=== PATIENT | female | born 1935 | race Caucasian/White ===

== ENCOUNTER 2019-03-02 11:49 | Observation (INO) | payer MEDICARE, OTHER ==
[2019-03-02] MEDS ORDERED: NORMAL SALINE 1000 ML 1,000 ML IV PRN (12:28)
--- NOTE | 2019-03-02 12:30 | ER Document Report ---
ED Medical Screen (RME) - General Chief Complaint: Low Blood Pressure Stated Complaint: DIZZINESS Time Seen by Provider: 03/02/19 12:20 TRAVEL OUTSIDE OF THE [place] IN LAST 30 DAYS: No - HPI Notes: 03/02/19 12:28 Patient is an 83-year-old female with a history of coronary artery disease with stent placement in December for [place] (on Brilinta), COPD, CHF, GERD who presents from cardiac rehab with complaint of dizziness and hypotension. Patient states that she is otherwise feeling well and is eating and drinking without difficulty. She is urinating normally and having normal bowel movements. She has not n oticed any melena or hematochezia. Denies drug allergies. She does not take any blood pressure medicines. Denies GEORGES, fever, neck pain, URI, CP, SOB, Abd pain, n/v/d, dysuria, back pain, or rash. I have treated and performed a rapid initial assessment of this patient. A comprehensive ED assessment and evaluation of the patient, analysis of test results and completion of medical decision making process will be conducted by additional ED providers. PHYSICAL EXAMINATION: GENERAL: Well-appearing, well-nourished and in no acute distress. A&Ox4. Answers questions appropriately. LUNGS: Breath sounds clear to auscultation bilaterally and equal. No wheezes rales or rhonchi. HEART: Regular rate and rhythm Extremities: No cyanosis, clubbing, or edema b/l. NEUROLOGICAL: Normal speech, normal gait. Cranial nerves grossly intact. PSYCH: Normal mood, normal affect. - Related Data Allergies/Adverse Reactions: No Known Allergies Allergy (Unverified 03/02/19 12:23) Physical Exam - Vital signs Vitals: Temp Pulse Resp BP Pulse Ox 97.7 F 67 24 H 75/52 L 95 03/02/19 12:06 03/02/19 12:06 03/02/19 12:06 03/02/19 12:06 03/02/19 12:06 Course - Vital Signs Vital signs: Temp Pulse Resp BP Pulse Ox 97.7 F 67 24 H 75/52 L 95 03/02/19 12:06 03/02/19 12:06 03/02/19 12:06 03/02/19 12:06 03/02/19 12:06
--- NOTE | 2019-03-02 13:20 | RADIOLOGY REPORT (SQ) ---
EXAM DESCRIPTION: CHEST SINGLE VIEW COMPLETED DATE/TIME: 03/02/2019 1:05 pm REASON FOR STUDY: Hypotension, wheeze COMPARISON: None. EXAM PARAMETERS: NUMBER OF VIEWS: One view. TECHNIQUE: Single frontal radiographic view of the chest acquired. RADIATION DOSE: NA LIMITATIONS: None. FINDINGS: LUNGS AND PLEURA: No consolidation, masses or pneumothorax. No pleural effusion. MEDIASTINUM AND HILAR STRUCTURES: No masses. Contour normal. HEART AND VASCULAR STRUCTURES: Heart normal in size. Normal vasculature. BONES: No acute findings. HARDWARE: Right hilar suture material. OTHER: No other significant finding. IMPRESSION: NO ACUTE RADIOGRAPHIC FINDING IN THE CHEST. TECHNICAL DOCUMENTATION: JOB ID: [id number] [id number] [email or web address]- All Rights Reserved Reading location - IP/workstation name: [email or web address]
[2019-03-02 13:25] LABS: ABSOLUTE BASOPHILS # (AUTO) 0.1 10^3/uL (0.0-0.2); ABSOLUTE EOSINOPHILS # (AUTO) 0.2 10^3/uL (0.0-0.6); ABSOLUTE LYMPHOCYTES (AUTO) 1.6 10^3/uL (0.5-4.7); ABSOLUTE MONOCYTES (AUTO) 0.7 10^3/uL (0.1-1.4); ABSOLUTE NEUT (AUTO) 6.6 10^3/uL (1.7-8.2); APPEARANCE,URINE CLEAR; BASOPHILS % (AUTO) 0.7 % (0-2); BILIRUBIN,URINE NEGATIVE (NEGATIVE); COLOR,URINE STRAW; EOSINOPHILS % (AUTO) 1.8 % (0-6); GLUCOSE, URINE NEGATIVE (NEGATIVE); HEMATOCRIT 33.7 % (36.0-47.0); HEMOGLOBIN 11.2 g/dL (12.0-15.5); INTERNATIONAL RATION (INR) 0.93; KETONES,URINE NEGATIVE (NEGATIVE); LEUKOCYTE ESTERASE,URINE NEGATIVE (NEGATIVE); LYMPHOCYTES % (AUTO) 17.5 % (13-45); MEAN CORPUSCULAR HEMOGLOBIN 31.6 pg (27.0-33.4); MEAN CORPUSCULAR HGB CONC 33.2 g/dL (32.0-36.0); MEAN CORPUSCULAR VOLUME 95 fl (80-97); NITRITE,URINE NEGATIVE (NEGATIVE); PLATELET COUNT 404 10^3/uL (150-450); PROTEIN,URINE NEGATIVE (NEGATIVE); RED BLOOD COUNT 3.54 10^6/uL (3.72-5.28); RED CELL DISTRIBUTION WIDTH 13.9 % (11.5-14.0); TOTAL CELLS COUNTED % (AUTO) 100 %; URINE SPECIFIC GRAVITY 1.004; UROBILINOGEN,URINE NEGATIVE mg/dL (<2.0); WHITE BLOOD COUNT 9.1 10^3/uL (4.0-10.5)
[2019-03-02 13:47] LABS: ALANINE AMINOTRANSFERASE 34 U/L (9-52); ALKALINE PHOSPHATASE 98 U/L (38-126); ANION GAP 8 (5-19); ASPARTATE AMINO TRANSFERASE 34 U/L (14-36); BILIRUBIN,DIRECT 0.2 mg/dL (0.0-0.4); BILIRUBIN,TOTAL 0.5 mg/dL (0.2-1.3); BLOOD UREA NITROGEN 14 mg/dL (7-20); CALCIUM 9.7 mg/dL (8.4-10.2); CARBON DIOXIDE 29 mmol/L (22-30); CHLORIDE 101 mmol/L (98-107); GLUCOSE 87 mg/dL (75-110); POTASSIUM 4.3 mmol/L (3.6-5.0); SODIUM 138.1 mmol/L (137-145); TOTAL PROTEIN 6.8 g/dL (6.3-8.2)
[2019-03-02] MEDS ORDERED: ACETAMINOPHEN 325 MG TABLET PO ONE (13:49)
--- NOTE | 2019-03-02 13:58 | RADIOLOGY REPORT (SQ) ---
EXAM DESCRIPTION: CT HEAD WITHOUT COMPLETED DATE/TIME: 03/02/2019 1:46 pm REASON FOR STUDY: new onset facial numbness COMPARISON: None. TECHNIQUE: Axial images acquired through the brain without intravenous contrast. Images reviewed wi th bone, brain and subdural windows. Additional sagittal and coronal reconstructions were generated. Images stored on PACS. All CT scanners at this facility use dose modulation, iterative reconstruction, and/or weight based d osing when appropriate to reduce radiation dose to as low as reasonably achievable (ALARA). [facility]: Dose Right [facility]: CareDose [facility]: Dose Right [facility]: Teradose 4D [facility]: Digital Loyalty System RADIATION DOSE: CT Rad equipment meets quality standard of care and radiation dose reduction techniq ues were employed. CTDIvol: 53.2 mGy. DLP: 1017 mGy-cm. mGy. LIMITATIONS: None. FINDINGS: VENTRICLES: Normal size and contour. CEREBRUM: No masses. No hemorrhage. No midline shift. No evidence for acute infarction. Spotty bif rontal and biparietal low attenuation from chronic small vessel ischemic change in the deep hemispher ic white matter. CEREBELLUM: No masses. No hemorrhage. No alteration of density. No evidence for acute infarction. EXTRAAXIAL SPACES: No fluid collections. No masses. ORBITS AND GLOBE: No intra- or extraconal masses. Normal contour of globe without masses. Post bila teral cataract surgery CALVARIUM: No fracture. PARANASAL SINUSES: No fluid or mucosal thickening. SOFT TISSUES: No mass or hematoma. OTHER: No other significant finding. IMPRESSION: Age-appropriate deep periventricular white matter small vessel disease. No CT evidence of acute large territory ischemic change, acute intracranial hemorrhage, mass effect, or midline shift. EVIDENCE OF ACUTE STROKE: NO. COMMENT: Quality ID # [id number]: Final reports with documentation of one or more dose reduction techniques (e.g., Automated exposure control, adjustment of the mA and/or kV according to patient size, use of iterative reconstruction technique) TECHNICAL DOCUMENTATION: JOB ID: [id number] [employer]- All Rights Reserved Reading location - IP/workstation name: [email or web address]-
--- NOTE | 2019-03-02 13:59 | ER Document Report ---
ED Blood Pressure Problem - General Chief Complaint: Low Blood Pressure Stated Complaint: DIZZINESS Time Seen by Provider: 03/02/19 12:20 TRAVEL OUTSIDE OF THE U.S. IN LAST 30 DAYS: No - HPI Notes: Patient is a 83-year-old female with recent MO and coronary stenting done on 12/16/2018 that presents to the emergency department for chief complaint of lightheadedness and hypotension. Patient was in cardiac rehab today on an exercise bike. She states she had been doing weight lifting and walking prior to getting on the bike. While going she felt that she had reached her limit. Patient tried to stand up off the bike and felt very lightheaded and dizzy. She states she then collapsed down to the ground. She denied any head injury or loss of consciousness. She states that she had some improvement after lying down on the ground. Patient was noted to be hypotensive at that time. She is currently on Brilinta and aspirin for her coronary stent. She denied any associated shortness of breath, palpitations, or chest pain. Currently patient states that she is feeling much better. She states that about 30 minutes ago she started to have a headache which she describes as a squeezing sensation behind her left eye and some paresthesias to the left side of her face. She denied any other focal numbness or weakness. She denies vision changes. She denies history of headaches in the past. Past Medical History: Hyperlipidemia, hypertension, CAD, COPD Past Surgical History: Coronary stenting Social History: Denies tobacco and alcohol Family History: Reviewed and noncontributory for presenting illness Allergies: Reviewed, see documented allergy list. REVIEW OF SYSTEMS: CONSTITUTIONAL : No fever No chills No diaphoresis No recent illness EENT: No vision changes No congestion No sore throat CARDIOVASCULAR: No chest pain No palpitations RESPIRATORY: No shortness of breath No cough No difficulty breathing GASTROINTESTINAL: No abdominal pain No nausea No vomiting No diarrhea GENITOURINARY: No dysuria No hematuria No difficulty urinating MUSCULOSKELETAL: No back pain No leg pain No arm pain SKIN: No rashes No lesions LYMPHATIC: No swollen, enlarged glands. NEUROLOGICAL: lightheadedness No headache No weakness paresthesias PSYCHIATRIC: No anxiety No depression PHYSICAL EXAMINATION: Vital signs reviewed, nursing noted reviewed. GENERAL: Well-appearing, well-nourished and in no acute distress. HEAD: Atraumatic, normocephalic. EYES: Eyes appear normal, extraocular movements intact, sclera anicteric, conjunctiva are normal. ENT: nares patent, oropharynx clear without exudates. Moist mucous membranes. NECK: Normal range of motion, supple without lymphadenopathy LUNGS: Breath sounds clear to auscultation bilaterally and equal. No wheezes rales or rhonchi. HEART: Regular rate and rhythm without murmurs, +2/4 bilateral radial and DP pulse ABDOMEN: Soft, nontender, normoactive bowel sounds. No rebound, guarding, or rigidity. No masses appreciated. EXTREMITIES: Nontender, good range of motion, no pitting or edema. NEUROLOGICAL: No focal neurological deficits. Moves all extremities spontaneously Motor grossly intact on exam. subjective paresthesia to left cheek and jaw distribution. Normal sensation to the upper part of patient's forehead. No facial droop or weakness. Normal speech. PSYCH: Normal mood, normal affect. SKIN: Warm, Dry, normal turgor, no rashes or lesions noted on exposed skin - Related Data Allergies/Adverse Reactions: ciprofloxacin [From Cipro] Allergy (Verified 03/02/19 12:30) clindamycin Allergy (Verified 03/02/19 12:30) meperidine [From Demerol] Allergy (Verified 03/02/19 12:30) Confusion oxycodone [From OxyContin] Allergy (Verified 03/02/19 12:30) Penicillins Allergy (Verified 03/02/19 12:30) paralysis propoxyphene [From Darvon] Allergy (Verified 03/02/19 12:30) simvastatin [From Zocor] Allergy (Verified 03/02/19 12:30) Sulfa (Sulfonamide Antibiotics) Allergy (Verified 03/02/19 12:30) rash trovafloxacin [From Trovan] Allergy (Verified 03/02/19 12:30) codeine Adverse Reaction (Verified 03/02/19 12:30) Nausea Past Medical History - Social History Smoking Status: Former Smoker Family History: Reviewed & Not Pertinent Patient has suicidal ideation: No Patient has homicidal ideation: No - Past Medical History Cardiac Medical History: Reports: Hx Congestive Heart Failure, Hx Heart Attack - 12/16/18 Pulmonary Medical History: Reports: Hx COPD Renal/ Medical History: Denies: Hx Peritoneal Dialysis GI Medical History: Reports: Hx Gastroesophageal Reflux Disease Past Surgical History: Reports: Hx Appendectomy, Hx Cardiac Surgery - stent, Hx Cholecystectomy, Hx Orthopedic Surgery - neck, L knee arthoscopy, Hx Tubal L igation Physical Exam - Vital signs Vitals: Temp Pulse Resp BP Pulse Ox 97.7 F 67 24 H 75/52 L 95 03/02/19 12:06 03/02/19 12:06 03/02/19 12:06 03/02/19 12:06 03/02/19 12:06 Course - Re-evaluation Re-evalutation: 03/02/19 13:53 Vitals reviewed. Nursing notes reviewed. Patient presented hypotensive. She has been ordered IV fluids and blood pressure has now increased to 108/80. Patient states that that is a very high blood pressure for her. She is no longer lightheaded or dizzy. She is complaining of a headache with left-sided facial paresthesias which just began while in the emergency room. CT brain has been ordered. Patient has no other focal neurologic deficits. Her NIH is 1 for her paresthesias and she is not a TPA candidate for low NIH. My suspicion for ischemic stroke as a cause of her facial numbness is very low. 03/02/19 15:[address] brain shows no intracranial pathology. Her headache has improved with Tylenol and as the pain has subsided so has the facial paresthesias. She states it is feeling better but not completely resolved. The remainder of her work-up is unremarkable. Her troponin is negative. She has no electrolyte derangements. She has not had any dysrhythmia on telemetry monitoring. I have attempted to contact cardiac rehab to see if patient was on telemetry during her episode today. They did not convey any dysrhythmia on report when they sent her to the emergency room. I did discuss her care with Dr. Rhodes at [facility] who is partners with her collar folder operator. He does not feel she is requiring transfer or heart catheterization at this time. He does recommend tel emetry obs for dysrhythmia and trending of her troponins. Patient will be admitted to this facility for further monitoring. Her care was discussed with Dr. Troncoso who accepted admission. Patient in agreement with plan of care and stable at time of admission. Laboratory 03/02/19 03/02/19 03/02/19 12:49 12:49 12:49 WBC 9.1 RBC 3.54 L Hgb 11.2 L Hct 33.7 L MCV 95 MCH 31.6 MCHC 33.2 RDW 13.9 Plt Count 404 Seg Neutrophils % 72.0 Lymphocytes % 17.5 Monocytes % 8.0 Eosinophils % 1.8 Basophils % 0.7 Absolute Neutrophils 6.6 Absolute Lymphocytes 1.6 Absolute Monocytes 0.7 Absolute Eosinophils 0.2 Absolute Basophils 0.1 PT 13.0 INR 0.93 Sodium 138.1 Potassium 4.3 Chloride 101 Carbon Dioxide 29 Anion Gap 8 BUN 14 Creatinine 0.89 Est GFR ( Amer) > 60 Est GFR (Non-Af Amer) > 60 Glucose 87 Calcium 9.7 Total Bilirubin 0.5 Direct Bilirubin 0.2 Neonat Total Bilirubin Not Reportable Neonat Direct Bilirubin Not Reportable Neonat Indirect Bili Not Reportable AST 34 ALT 34 Alkaline Phosphatase 98 Troponin I NT-Pro-B Natriuret Pep Total Protein 6.8 Albumin 4.0 Urine Color Urine Appearance Urine pH Ur Specific [place] Urine Protein Urine Glucose (UA) Urine Ketones Urine Blood Urine Nitrite Urine Bilirubin Urine Urobilinogen Ur Leukocyte Esterase Urine WBC (Auto) Urine RBC (Auto) Squamous Epi Cells Auto Urine Mucus (Auto) Urine Ascorbic Acid 03/02/19 03/02/19 12:49 12:49 WBC RBC Hgb Hct MCV MCH MCHC RDW Plt Count Seg Neutrophils % Lymphocytes % Monocytes % Eosinophils % Basophils % Absolute Neutrophils Absolute Lymphocytes Absolute Monocytes Absolute Eosinophils Absolute Basophils PT INR Sodium Potassium Chloride Carbon Dioxide Anion Gap BUN Creatinine Est GFR ( Amer) Est GFR (Non-Af Amer) Glucose Calcium Total Bilirubin Direct Bilirubin Neonat Total Bilirubin Neonat Direct Bilirubin Neonat Indirect Bili AST ALT Alkaline Phosphatase Troponin I < 0.012 NT-Pro-B Natriuret Pep 383 Total Protein Albumin Urine Color STRAW Urine Appearance CLEAR Urine pH 7.0 Ur Specific [place] 1.004 Urine Protein NEGATIVE Urine Glucose (UA) NEGATIVE Urine Ketones NEGATIVE Urine Blood NEGATIVE Urine Nitrite NEGATIVE Urine Bilirubin NEGATIVE Urine Urobilinogen NEGATIVE Ur Leukocyte Esterase NEGATIVE Urine WBC (Auto) 0 Urine RBC (Auto) 0 Squamous Epi Cells Auto <1 Urine Mucus (Auto) RARE Urine Ascorbic Acid NEGATIVE Head CT 03/02/19 00:00 IMPRESSION: Age-appropriate deep periventricular white matter small vessel disease. No CT evidence of acute large territory ischemic change, acute intracranial hemorrhage, mass effect, or midline shift. EVIDENCE OF ACUTE STROKE: NO. Chest X-Ray 03/02/19 12:27 IMPRESSION: NO ACUTE RADIOGRAPHIC FINDING IN THE CHEST. - Vital Signs Vital signs: Temp Pulse Resp BP Pulse Ox 97.7 F 67 13 122/65 95 03/02/19 12:06 03/02/19 12:06 03/02/19 14:56 03/02/19 14:56 03/02/19 14:56 - Laboratory Result Diagrams: 03/02/19 12:49 03/02/19 12:49 Laboratory results interpreted by me: 03/02/19 12:49 RBC 3.54 L Hgb 11.2 L Hct 33.7 L - EKG Interpretation by Me Additional EKG results interpreted by me: 03/02/19 15:55 Interpreted by myself [id number]: Normal sinus rhythm, rate 65, normal axis, no STEMI, no ectopy Discharge - Discharge Clinical Impression: Transient hypotension, Near syncope Condition: Stable Disposition: ADMITTED OBSERVATION Admitting Provider: Aba (Hospitalist) Unit Admitted: Telemetry
[2019-03-02 14:12] LABS: NT PRO BNP 383 pg/mL (<450)
[2019-03-02 14:13] LABS: TROPONIN I < 0.012 ng/mL
[2019-03-02] MEDS ORDERED: (PENDING PHARMACY ID) (Ranitidine Hcl [Zantac 150 Mg Tablet] 150 MG) PO PRN (16:41)
[2019-03-02] MEDS ORDERED: FAMOTIDINE 20 MG TABLET PO PRN (16:48)
--- NOTE | 2019-03-02 16:53 | PDOC H&P ---
History of Present Illness History of Present Illness: JOHNNA MCLAIN is a 83 year old female with a history of well-controlled COPD and coronary artery disease status post 1 stent and the right circumflex artery approximately 1-1/2 months ago who just started cardiac rehab today. She said she had a bowl of cereal this morning and a couple coffee but she has not had any water all day. She said her blood pressure tends to run low and had been on blood pressure medicine after her heart cath but was taken off of it because her pressures were running too low. She did cardiovascular exercise today for about an hour and when she got off of the machine at the end of it she did not do a cooldown session and when she got off the machine instead up she began to feel dizzy. She says she sat down and rested for a minute and started to feel better but when she stood up she got dizzy again. She is not sure if she was on a monitoring specialist while in the and this was going on. They did check her blood pressure while she was seated and her systolic was in the upper 90s. When she stood up it was in the low to mid 80s. It was again low in the emergency department and they gave her a bag of IV fluid her systolic came up into the 120s. She denies any chest pain. She denies passing out. She says she does not think anything like this happen her before. Past Medical History Cardiac Medical History: Reports: Congestive Heart Failure, Myocardial Infarction - 12/16/18 Pulmonary Medical History: Reports: Chronic Obstructive Pulmonary Disease (COPD) GI Medical History: Reports: Gastroesophageal Reflux Disease Past Surgical History Past Surgical History: Reports: Appendectomy, Cholecystectomy, Orthopedic Surg henrique - neck, L knee arthoscopy, Tubal Ligation Social History Smoking Status: Former Smoker Family History Family History: Reviewed & Not Pertinent Parental Family History Reviewed: Yes - Coronary artery disease Children Family History Reviewed: Yes - Nothing known Sibling(s) Family History Reviewed.: Yes - Hypertension Medication/Allergy Home Medications: Albuterol Sulfate [Ventolin 0.083% Neb 2.5 mg/3 ml Ampul] 1 vial NEB TIDP PRN 03/02/19 Atorvastatin Calcium [Lipitor 80 mg Tablet] 80 mg PO QHS 03/02/19 Fluticasone/Salmeterol [Advair 250-50 Diskus 14 Dose/Diskus] 1 inh IH Q12 03/02/19 Ranitidine HCl [Zantac 150 mg Tablet] 150 mg PO BIDP PRN 03/02/19 Ticagrelor [Brilinta 90 mg Tablet] 90 mg PO Q12 03/02/19 Tiotropium Dexter [Spiriva Handihaler 5 Cap/Kit (18 Mcg/Cap)] 1 cap IH DAILY Allergies/Adverse Reactions: ciprofloxacin [From Cipro] Allergy (Verified 03/02/19 12:30) clindamycin Allergy (Verified 03/02/19 12:30) meperidine [From Demerol] Allergy (Verified 03/02/19 12:30) Confusion oxycodone [From OxyContin] Allergy (Verified 03/02/19 12:30) Penicillins Allergy (Verified 03/02/19 12:30) paralysis propoxyphene [From Darvon] Allergy (Verified 03/02/19 12:30) simvastatin [From Zocor] Allergy (Verified 03/02/19 12:30) Sulfa (Sulfonamide Antibiotics) Allergy (Verified 03/02/19 12:30) rash trovafloxacin [From Trovan] Allergy (Verified 03/02/19 12:30) codeine Adverse Reaction (Verified 03/02/19 12:30) Nausea Review of Systems All systems: reviewed and no additional remarkable complaints except as stated - All systems were reviewed and were negative except as noted in the HPI Physical Exam Vital Signs: Temp Pulse Resp BP Pulse Ox 97.7 F 67 13 122/65 95 03/02/19 12:06 03/02/19 12:06 03/02/19 14:56 03/02/19 14:56 03/02/19 14:56 Intake & Output 03/01/19 03/02/19 03/03/19 06:59 06:59 06:59 Intake Total 1000 Balance 1000 Weight 71.9 kg General appearance: PRESENT: no acute distress, cooperative, disheveled, obese Head exam: PRESENT: atraumatic, normocephalic Eye exam: PRESENT: EOMI, PERRLA. ABSENT: conjunctival injection, nystagmus, scleral icterus Ear exam: PRESENT: normal external ear exam Mouth exam: PRESENT: moist, neck supple Throat exam: ABSENT: post pharyngeal erythema Neck exam: PRESENT: full ROM. ABSENT: carotid bruit, JVD, lymphadenopathy, meningismus, tenderness, thyromegaly Respiratory exam: PRESENT: clear to auscultation immanuel, symmetrical, unlabored. ABSENT: accessory muscle use, chest wall tenderness, crackles, prolonged expiratory phas, rhonchi, tachypnea, wheezes Cardiovascular exam: PRESENT: RRR, +S1, +S2. ABSENT: diastolic murmur, systolic murmur Pulses: PRESENT: normal carotid pulses Vascular exam: PRESENT: normal capillary refill GI/Abdominal exam: PRESENT: normal bowel sounds, soft. ABSENT: distended, guarding, rebound, tenderness Extremities exam: ABSENT: clubbing, pedal edema Musculoskeletal exam: PRESENT: normal inspection. ABSENT: deformity Neurological exam: PRESENT: alert, awake, oriented to person, oriented to place, oriented to time, oriented to situation, CN II-XII grossly intact. ABSENT: motor sensory deficit Psychiatric exam: PRESENT: appropriate affect, normal mood Skin exam: PRESENT: dry, warm Results Laboratory Results: 03/02/19 12:49 03/02/19 12:49 03/02/19 03/02/19 03/02/19 12:49 12:49 12:49 WBC 9.1 RBC 3.54 L Hgb 11.2 L Hct 33.7 L MCV 95 MCH 31.6 MCHC 33.2 RDW 13.9 Plt Count 404 Seg Neutrophils % 72.0 Lymphocytes % 17.5 Monocytes % 8.0 Eosinophils % 1.8 Basophils % 0.7 Absolute Neutrophils 6.6 Absolute Lymphocytes 1.6 Absolute Monocytes 0.7 Absolute Eosinophils 0.2 Absolute Basophils 0.1 Sodium 138.1 Potassium 4.3 Chloride 101 Carbon Dioxide 29 Anion Gap 8 BUN 14 Creatinine 0.89 Est GFR ( Amer) > 60 Est GFR (Non-Af Amer) > 60 Glucose 87 Calcium 9.7 Total Bilirubin 0.5 AST 34 ALT 34 Alkaline Phosphatase 98 Total Protein 6.8 Albumin 4.0 Urine Color STRAW Urine Appearance CLEAR Urine pH 7.0 Ur Specific [place] 1.004 Urine Protein NEGATIVE Urine Glucose (UA) NEGATIVE Urine Ketones NEGATIVE Urine Blood NEGATIVE Urine Nitrite NEGATIVE Ur Leukocyte Esterase NEGATIVE Urine WBC (Auto) 0 Urine RBC (Auto) 0 03/02/19 12:49 Troponin I < 0.012 NT-Pro-B Natriuret Pep 383 Impressions: Head CT 03/02/19 00:00 IMPRESSION: Age-appropriate deep periventricular white matter small vessel disease. No CT evidence of acute large territory ischemic change, acute intracranial hemorrhage, mass effect, or midline shift. EVIDENCE OF ACUTE STROKE: NO. Chest X-Ray 03/02/19 12:27 IMPRESSION: NO ACUTE RADIOGRAPHIC FINDING IN THE CHEST. Assessment and Plan - Diagnosis (1) Near syncope Is this a current diagnosis for this admission?: Yes Plan: We will keep on a monitoring specialist overnight for observation. Will attempt to find out if she was on a monitoring specialist during her cardiac rehab and if so we will attempt to get any data they have from that session especially while she was exercising and while this event happened. If there is no evidence of any arrhythmia, probably a combination of some mild dehydration and orthostatic hypotension. We will check her orthostatic vital signs again. However, she is had some IV fluids now so that may obscure a positive finding. (2) Coronary artery disease Qualifiers: Coronary Disease-Associated Artery/Lesion type: [place] artery [place] vs. transplanted heart: [place] heart Associated angina: without angina Qualified Code(s): I25.10 - Atherosclerotic heart disease of [place] coronary artery w ithout angina pectoris Is this a current diagnosis for this admission?: Yes Plan: We will continue her Brilinta and atorvastatin (3) COPD (chronic obstructive pulmonary disease) Qualifiers: COPD type: chronic bronchitis Chronic bronchitis type: simple Qualified Code(s): J41.0 - Simple chronic bronchitis Is this a current diagnosis for this admission?: Yes Plan: We will continue her home medications. Not acutely exacerbated. - Time Time Spent with patient: 65 minutes Time Spent with patient: 35 or more minutes
[2019-03-02] MEDS: ALBUTEROL SULFATE 0.083% NEB 2.5 MG/3 ML AMPUL NEB PRN (20:59)
[2019-03-02] MEDS ORDERED: ATORVASTATIN CALCIUM 80 MG TABLET PO SCH (22:00)
[2019-03-02] MEDS ORDERED: (PENDING PHARMACY ID) (Fluticasone/Salmeterol 1 INH) IH SCH (22:00)
[2019-03-02] MEDS ORDERED: TICAGRELOR 90 MG TABLET ONE (22:27)
[2019-03-02] MEDS: FAMOTIDINE 20 MG TABLET PO SCH (22:31)
[2019-03-02] MEDS: TICAGRELOR 90 MG TABLET PO SCH (22:31)
[2019-03-02] MEDS: ASPIRIN 81 MG TABLET, ENT COATED PO SCH (22:31)
--- NOTE | 2019-03-02 23:28 | EKG REPORT ---
SEVERITY:- ABNORMAL ECG - SINUS RHYTHM NONSPECIFIC INTRAVENTRICULAR CONDUCTION DELAY : Confirmed by: Leann Jay MD 02-Mar-2019 23:27:41
[2019-03-03] MEDS: ALBUTEROL SULFATE 0.083% NEB 2.5 MG/3 ML AMPUL NEB PRN (07:46)
[2019-03-03] MEDS ORDERED: TIOTROPIUM BROMIDE DPI 5 CAP/KIT (18 MCG/CAP) IH SCH (10:00)
[2019-03-03] MEDS: ASPIRIN 81 MG TABLET, ENT COATED PO SCH (10:39)
[2019-03-03] MEDS: FAMOTIDINE 20 MG TABLET PO SCH (10:39)
[2019-03-03] MEDS: FLUTICASONE/VILANTEROL 200-25 MCG/DOSE IH SCH ×2 (10:39→10:47)
[2019-03-03] MEDS: TICAGRELOR 90 MG TABLET PO SCH (10:39)
--- NOTE | 2019-03-03 12:10 | PDOC DISCHARGE SUMMARY ---
General - Admit/Disc Date/PCP Admission Date/Primary Care Provider: 03/02/19 16:49 Discharge Date: 03/03/19 - Discharge Diagnosis (1) Near syncope Is this a current diagnosis for this admission?: Yes (2) Orthostatic hypotension Is this a current diagnosis for this admission?: Yes (3) Coronary artery disease Is this a current diagnosis for this admission?: Yes (4) COPD (chronic obstructive pulmonary disease) Is this a current diagnosis for this admission?: Yes (5) Osteoarthritis Is this a current diagnosis for this admission?: Yes - Additional Information Resuscitation Status: Full Code Home Medications: Albuterol Sulfate [Ventolin 0.083% Neb 2.5 mg/3 ml Ampul] 1 vial NEB TIDP PRN 03/02/19 Aspirin [Ecotrin 81 mg EC Tablet] 81 mg PO DAILY 03/02/19 Atorvastatin Calcium [Lipitor 80 mg Tablet] 80 mg PO QHS 03/02/19 Fluticasone/Salmeterol [Advair 250-50 Diskus 14 Dose/Diskus] 1 inh IH Q12 03/02/19 Folic Acid/Multivit,Iron,Seaweed Harvester [One Daily For Women Tablet] 1 each PO DAILY 03/02/19 Lactobacillus Acidophilus [Acidophilus Lactobacilli] 1 each PO DAILY 03/02/19 Ranitidine HCl [Zantac 150 mg Tablet] 150 mg PO BIDP PRN 03/02/19 Ticagrelor [Brilinta 90 mg Tablet] 90 mg PO Q12 03/02/19 Tiotropium Greybull [Spiriva Handihaler 5 Cap/Kit (18 Mcg/Cap)] 1 cap IH DAILY 03/02/19 History of Present Illness History of Present Illness: JOHNNA MCLAIN is a 83 year old female with a history of well-controlled COPD and coronary artery disease status post 1 stent and the right circumflex artery approximately 1-1/2 months ago who just started cardiac rehab today. She said she had a bowl of cereal this morning and a couple coffee but she has not had any water all day. She said her blood pressure tends to run low and had been on blood pressure medicine after her heart cath but was taken off of it because her pressures were running too low. She did cardiovascular exercise today for about an hour and when she got off of the machine at the end of it she did not do a cooldown session and when she got off the machine instead up she began to feel dizzy. She says she sat down and rested for a minute and started to feel better but when she stood up she got dizzy again. She is not sure if she was on a cardiac tech while in the and this was going on. They did check her blood pressure while she was seated and her systolic was in the upper 90s. When she stood up it was in the low to mid 80s. It was again low in the emergency department and they gave her a bag of IV fluid her systolic came up into the 120s. She denies any chest pain. She denies passing out. She says she does not think anything like this happen her before. Hospital Course Hospital Course: JOHNNA MCLAIN is a 83 year old female with a history of well-controlled COPD and coronary artery disease status post 1 stent and the right circumflex artery approximately 1-1/2 months ago who just started cardiac rehab today. She said she had a bowl of cereal this morning and a couple coffee but she has not had any water all day. She said her blood pressure tends to run low and had been on blood pressure medicine after her heart cath but was taken off of it because her pressures were running too low. She did cardiovascular exercise today for about an hour and when she got off of the machine at the end of it she did not do a cooldown session and when she got off the machine instead up she began to feel dizzy. She says she sat down and rested for a minute and started to feel better but when she stood up she got dizzy again. She is not sure if she was on a cardiac tech while in the and this was going on. They did check her blood pressure while she was seated and her systolic was in the upper 90s. When she stood up it was in the low to mid 80s. It was again low in the emergency depa rtment and they gave her a bag of IV fluid her systolic came up into the 120s. She denies any chest pain. She denies passing out. This afternoon patient seen sitting on chair and enjoying her lunch. She is awake alert oriented. She is not in pain or any form of distress. Her blood pressure is normalized. Her lightheadedness and near syncope is most probably due to orthostatic hypotension. Patient advised to hydrate herself adequately. I will continue her home medications and follow-up with her primary care physician in 1 week. Physical Exam Vital Signs: Temp Pulse Resp BP Pulse Ox 98.4 F 65 18 130/50 H 96 03/03/19 08:00 03/03/19 08:00 03/03/19 08:00 03/03/19 08:00 03/03/19 08:00 Intake & Output 03/02/19 03/03/19 03/04/19 06:59 06:59 06:59 Intake Total 1000 Balance 1000 Weight 70.1 kg General appearance: PRESENT: no acute distress Head exam: PRESENT: atraumatic Eye exam: PRESENT: conjunctiva pink Mouth exam: PRESENT: moist, tongue midline Respiratory exam: PRESENT: clear to auscultation immanuel. ABSENT: rales, rhonchi, wheezes Cardiovascular exam: PRESENT: RRR. ABSENT: diastolic murmur, rubs, systolic murmur GI/Abdominal exam: PRESENT: normal bowel sounds, soft. ABSENT: distended, guard ing, mass, organolmegaly, rebound, tenderness Neurological exam: PRESENT: alert, awake, oriented to person, oriented to place, oriented to time, oriented to situation Results Laboratory Results: 03/02/19 12:49 03/02/19 12:49 03/02/19 03/02/19 03/02/19 12:49 12:49 12:49 WBC 9.1 RBC 3.54 L Hgb 11.2 L Hct 33.7 L MCV 95 MCH 31.6 MCHC 33.2 RDW 13.9 Plt Count 404 Seg Neutrophils % 72.0 Lymphocytes % 17.5 Monocytes % 8.0 Eosinophils % 1.8 Basophils % 0.7 Absolute Neutrophils 6.6 Absolute Lymphocytes 1.6 Absolute Monocytes 0.7 Absolute Eosinophils 0.2 Absolute Basophils 0.1 Sodium 138.1 Potassium 4.3 Chloride 101 Carbon Dioxide 29 Anion Gap 8 BUN 14 Creatinine 0.89 Est GFR ( Amer) > 60 Est GFR (Non-Af Amer) > 60 Glucose 87 Calcium 9.7 Total Bilirubin 0.5 AST 34 ALT 34 Alkaline Phosphatase 98 Total Protein 6.8 Albumin 4.0 Urine Color STRAW Urine Appearance CLEAR Urine pH 7.0 Ur Specific Lloyd 1.004 Urine Protein NEGATIVE Urine Glucose (UA) NEGATIVE Urine Ketones NEGATIVE Urine Blood NEGATIVE Urine Nitrite NEGATIVE Ur Leukocyte Esterase NEGATIVE Urine WBC (Auto) 0 Urine RBC (Auto) 0 03/02/19 12:49 Troponin I < 0.012 NT-Pro-B Natriuret Pep 383 Impressions: Head CT 03/02/19 00:00 IMPRESSION: Age-appropriate deep periventricular white matter small vessel disease. No CT evidence of acute large territory ischemic change, acute intracranial hemorrhage, mass effect, or midline shift. EVIDENCE OF ACUTE STROKE: NO. Chest X-Ray 03/02/19 12:27 IMPRESSION: NO ACUTE RADIOGRAPHIC FINDING IN THE CHEST. Qualifiers - * PATIENT BEING DISCHARGED WITH ANY OF THE FOLLOWING DIAGNOSIS: No Acute Heart Failure - Is this a Heart Failure Patient?: No
[2019-03-03 12:31] VITALS: BP 111/79
== END 2019-03-03 13:05 | disposition home or self-care (01) ==
LOC: ER 11:49 → EH 16:49 → 4S 20:18
PROVIDERS: ADMIT Family Medicine; ATTEND Family Medicine
DX: R55 Syncope and collapse (principal); I95.1 Orthostatic hypotension; I25.10 Atherosclerotic heart disease of native coronary artery without angina pectoris; J41.0 Simple chronic bronchitis; M19.90 Unspecified osteoarthritis, unspecified site; R51 Headache; R20.2 Paresthesia of skin; I25.2 Old myocardial infarction; E78.5 Hyperlipidemia, unspecified; Z79.82 Long term (current) use of aspirin; Z79.899 Other long term (current) drug therapy; Z95.5 Presence of coronary angioplasty implant and graft; Z90.49 Acquired absence of other specified parts of digestive tract; Z87.891 Personal history of nicotine dependence; Z79.02 Long term (current) use of antithrombotics/antiplatelets; R29.701 NIHSS score 1
CPT/HCPCS: 93005; 99285; 96360; 96361; 36415; 85025; 85610; 80053; 81001; 84484; 83880; 71045; 70450; 93010; 94640 ×2; G0378 ×3; A9270 ×10; J3490 ×2; J7030